=== PATIENT | male | born 1960 | race Caucasian/White ===

== ENCOUNTER 2022-04-17 13:03 | Outpatient (CLI) | payer OTHER, SELFPAY | END 2022-04-17 13:04 | disposition home or self-care (01) | PROVIDERS: PCP Physician Assistant Medical; Visit Provider Surgery | DX: Z12.11 Encounter for screening for malignant neoplasm of colon (principal); K63.5 Polyp of colon; Z86.010 Personal history of colon polyps | CPT/HCPCS: 45385; 88305; 99153; J1200; J2250; J3010 ==

== ENCOUNTER 2023-02-03 07:46 | Outpatient (CLI) | payer OTHER, SELFPAY ==
--- NOTE | 2023-02-03 09:29 | W.ANESCHARGE ---
Anesthesia Charges Start Date/Time Anesthesia Start Date: 02/03/23 Anesthesia Start Time: 08:45 Stop Date/Time Anesthesia Stop Date: 02/03/23 Anesthesia Stop Time: 09:26
--- NOTE | 2023-02-03 11:44 | W.ANESCHARGE ---
Anesthesia Charges Start Date/Time Anesthesia Start Date: 02/03/23 Anesthesia Start Time: 08:45 Stop Date/Time Anesthesia Stop Date: 02/03/23 Anesthesia Stop Time: 09:26
== END 2023-02-03 07:47 | disposition home or self-care (01) ==
LOC: OP CLINIC 07:46
PROVIDERS: PCP Physician Assistant Medical; Visit Provider Surgery
DX: K63.5 Polyp of colon (principal); Z86.010 Personal history of colon polyps
CPT/HCPCS: 00811; 45385; 88305; J2704

== ENCOUNTER 2024-01-27 15:51 | Outpatient (CLI) | payer OTHER, SELFPAY | END 2024-01-27 15:52 | disposition home or self-care (01) | LOC: LKVREF 15:52 | PROVIDERS: PCP Physician Assistant Medical; Visit Provider Physician Assistant Medical | DX: Z12.5 Encounter for screening for malignant neoplasm of prostate (principal) | CPT/HCPCS: G0103 ==

== ENCOUNTER 2024-02-08 07:08 | Outpatient (CLI) | payer OTHER, SELFPAY ==
--- NOTE | 2024-02-08 08:33 | W.ANESCHARGE ---
Anesthesia Charges Start Date/Time Anesthesia Start Date: 02/08/24 Anesthesia Start Time: 08:18 Stop Date/Time Anesthesia Stop Date: 02/08/24 Anesthesia Stop Time: 08:44
--- NOTE | 2024-02-08 08:44 | W.ANESCHARGE ---
Anesthesia Charges Start Date/Time Anesthesia Start Date: 02/08/24 Anesthesia Start Time: 08:18 Stop Date/Time Anesthesia Stop Date: 02/08/24 Anesthesia Stop Time: 08:44
== END 2024-02-08 07:09 | disposition home or self-care (01) ==
LOC: OP CLINIC 07:09
PROVIDERS: PCP Physician Assistant Medical; Visit Provider Internal Medicine
DX: Z12.11 Encounter for screening for malignant neoplasm of colon (principal); K64.8 Other hemorrhoids; Z86.0100 Personal history of colon polyps, unspecified
CPT/HCPCS: 00811; 45378; J2704